=== PATIENT | female | born 1945 | race Caucasian/White ===

== ENCOUNTER 2018-02-09 11:03 | Outpatient (CLI) | payer MEDICARE ==
--- NOTE | 2018-02-09 13:11 | RAD ---
SIX VIEWS OF THE CERVICAL SPINE: Indication: History of prior surgery with neck pain. Comparison: 08-08-14 FINDINGS: The ACDF spanning C5 through C7 is unchanged in position. The intervertebral disc cages are similar a ppearing. No acute fracture is evident. No appreciable abnormal translational motion is noted. There is multilevel facet and disc degenerative disease. The extent of the disc degenerative disease appear s largely stable to the prior exam. Facet osteoarthritic change at C4-5 and C3-4 appear mildly progre ssed from the prior exam. Lung apices are clear. Lateral masses are symmetrical. IMPRESSION: 1. Stable post-operative cervical spine. 2. Worsening facet osteoarthritic change at C3-4 and C4-5. 3. No abnormal translational motion demonstrated. POS: [facility]
== END 2018-02-09 11:04 | disposition home or self-care (01) ==
LOC: TBSIIMAG 11:03
PROVIDERS: ATTEND Neurological Surgery
DX: M47.22 Other spondylosis with radiculopathy, cervical region (principal); Z98.890 Other specified postprocedural states
CPT/HCPCS: 72050

== ENCOUNTER 2019-12-24 09:45 | Outpatient (CLI) | payer MEDICARE ==
--- NOTE | 2019-12-24 13:42 | MRI ---
MRI THORACIC SPINE PERFORMED WITHOUT CONTRAST ENHANCEMENT: Date: 12/24/2019 HISTORY: Mid back pain. No recent trauma. FINDINGS: The vertebral bodies maintain normal height and disc spaces all are fairly well preserved. No marrow edema change is seen. Cord signal change is normal. Review of the disc levels show no signs of canal or foraminal stenosis. No evidence of any significan t disc bulge. Incidental note is made of some minimal disc bulging at the L1-2 level. No periventricu lar findings. IMPRESSION: Unremarkable MRI of thoracic spine. POS: [facility]
== END 2019-12-24 09:46 | disposition home or self-care (01) ==
LOC: BICMRI 09:45
DX: M51.37 Other intervertebral disc degeneration, lumbosacral region (principal)
CPT/HCPCS: 72146